=== PATIENT | male | born 1965 | race Hispanic/Latino ===

== ENCOUNTER 2025-01-09 05:47 | Day surgery (SDC) | payer BC ==
[2025-01-09 06:26] LABS: Absolute Eosinophils 0.1 K/uL (0-0.5); Absolute Lymphocytes (CBC) 1.3 K/uL (0.7-4.9); Absolute Monocytes 0.8 K/uL (0.1-1.3); Absolute Neutrophil 6.8 K/uL (1.8-8.0); Basophils % 0.5 % (0-1.3); Eosinophils % 0.9 % (0-4.4); Hemoglobin 16.2 g/dL (13.6-17.9); Lymphocytes % 14.7 % (15.3-44.8); MCH 33.3 pg (27.0-35.0); MCHC 35.1 g/dL (32.0-36.0); MCV 94.7 fL (80-100); MPV 9.7 fL (7.6-11.3); Monocytes % 8.9 % (3.3-12.3); Platelets 168 thou/uL (152-406); RBC Red Blood Cell Count 4.85 M/uL (4.33-5.43); Red Cell Distribution Width 14.1 % (12.1-15.2)
[2025-01-09 06:41] LABS: Anion Gap 12.1 mEq/L (5.0-15.0); Potassium 4.1 mEq/L (3.5-5.1)
[2025-01-09] MEDS ORDERED: KETOROLAC 30 MG/ML INJ ONE (07:44)
[2025-01-09] MEDS ORDERED: ONDANSETRON 4 MG/2 ML VIAL ONE (07:44)
[2025-01-09] MEDS ORDERED: LIDOCAINE 1% MPF 5 ML VIAL ONE (07:44)
[2025-01-09] MEDS ORDERED: FENTANYL CITR 100 MCG/2 ML ONE ×2 (07:44→09:00)
[2025-01-09] MEDS ORDERED: MIDAZOLAM HCL 2 MG/2 ML INJ ONE (07:44)
[2025-01-09] MEDS ORDERED: propofoL 200 MG/20 ML VIAL IV ONE (07:44)
[2025-01-09] MEDS ORDERED: ROCURONIUM 50 MG/5 ML VIAL IV ONE (07:44)
--- NOTE | 2025-01-09 08:05 | RAD REPORT ---
Procedure: Chest Single View HISTORY: Preop COMPARISON: none FINDINGS: The lungs appear clear of acute infiltrate. No significant pleural effusion noted. The heart is normal size. IMPRESSION: No acute abnormality is displayed.
[2025-01-09] MEDS: CEFAZOLIN SODIUM 1 GM/VIAL ONE (08:55)
[2025-01-09] MEDS ORDERED: Mastisol Adhesive Liq ONE (09:03)
[2025-01-09] MEDS ORDERED: GLYCOPYRROLATE 0.2 MG/ML SYR ONE (09:18)
[2025-01-09] MEDS ORDERED: NEOSTIGMINE 1 MG/ML -10 ML VIAL ONE (09:18)
--- NOTE | 2025-01-09 09:42 | P.BOP ---
Preoperative diagnosis: incarcerated umbilical hernia, morbid obesity Postoperative diagnosis: same Primary procedure: Laparoscopic repair of incarcerated umbilical hernia Packing Tractor Machine Operator: Wilma Engel (Chery) Estimated blood loss: <10cc Specimen: hernia sac , incarcerated nonviable omentum Findings: incarcerated nonviable omentum Anesthesia: IVCS Complications: None Implants: ventralex large Transferred to: Recovery Room Condition: Good
[2025-01-09] MEDS: HYDROMORPHONE HCL 1 MG/ML INJ ONE (10:20)
[2025-01-09] MEDS: HYDROCODONE/APAP 10/325 TAB ONE (11:24)
--- NOTE | 2025-01-09 12:00 | EKG ---
Test Date: 2025-01-09 Test Time: 06:37:06 Fuel Operator: MARYJANE MEASUREMENT RESULTS: Intervals: Rate: 99 ME: 152 QRSD: 68 QT: 342 QTc: 438 [place]: P: 53 ME: 152 QRS: 49 T: 50 INTERPRETIVE STATEMENTS: Normal sinus rhythm Normal ECG No previous ECG available for comparison Electronically Signed On 01-09-25 11:59:14 CDT by Jeferson Watson
[2025-01-09 13:02] VITALS: BP 140/79
[2025-01-09 13:03] VITALS: TEMP 97; O2SAT 95
== END 2025-01-09 12:24 | disposition home or self-care (01) ==
LOC: OR 05:47
PROVIDERS: ATTEND Surgery
PROC: 0WUF4JZ Supplement Abdominal Wall with Synthetic Substitute, Percutaneous Endoscopic Approach (ICD-10-PCS; principal; 2025-01-09 08:40)
DX: K42.0 Umbilical hernia with obstruction, without gangrene (principal)
CPT/HCPCS: 93005; 85025; 80048; 36415; 88302; 71045; 49596; L0625; J2704; J2710; J2003; J2250; J3010 ×2; J1171; J2405; J0690